=== PATIENT | male | born 1985 ===

== ENCOUNTER 2017-05-15 16:02 | Emergency (ER) | payer OTHER ==
[~2017-05-15] VITALS: Ht 177.8 cm; Wt 77.6 kg
[2017-05-15 16:06] VITALS: TEMP 36.7; Ht 177.8 cm; Wt 77.6 kg
[2017-05-15] MEDS ORDERED: ALUMINUM/MAGNESIUM SUSP 30 ML UDC PO STA (16:21)
[2017-05-15] MEDS ORDERED: SODIUM CHLORIDE 0.9% 1000ML 1,000 ML IV STA (16:21)
[2017-05-15] MEDS ORDERED: LIDOCAINE HCL 2% VISC SOLN 20 ML UDC PO STA (16:21)
[2017-05-15 16:43] LABS: BASO % 0.2 %; BASO ABS # 0.01 K/uL (0-0.2); COMPLETE YES; EOS % 5.3 %; HEMATOCRIT 44.7 % (42-52); IG% 0.2 %; LYMPH % 32.8 %; LYMPH ABS # 1.97 K/uL (1.2-3.4); MEAN CELL VOLUME 88.3 fL (80-100); MEAN CORPUSCULAR HGB CONC 35.1 g/dl (32-36); MEAN PLATELET VOLUME 9.9 fL (7.4-10.4); MONO % 9.3 %; NEUT % 52.2 %; PLATELET COUNT 180 K/uL (130-400); RED BLOOD COUNT 5.06 M/uL (4.7-6.1); WHITE BLOOD COUNT 6.01 K/uL (4.8-10.8)
[2017-05-15 16:50] LABS: URINE APPEARANCE CLEAR (CLEAR); URINE BILIRUBIN NEG (NEG); URINE COLOR YELLOW; URINE NITRITE NEG (NEG); UROBILINOGEN NEG (NEG)
[2017-05-15 16:52] LABS: MANUAL MICROSCOPIC REQUIRED? NO; REVIEW REQ? NO
[2017-05-15 16:58] LABS: BUN/CREATININE RATIO 20.2 (10-20); CALCIUM 8.5 mg/dl (8.5-10.1); CREATININE 1.1 mg/dl (0.60-1.40); POTASSIUM 4.1 mmol/L (3.5-5.1)
--- NOTE | 2017-05-15 17:48 | DIAGNOSTIC IMAGING REPORT ---
ABDOMINAL ULTRASOUND, RIGHT UPPER QUADRANT HISTORY: UPPER ABDOMINAL PAIN/GI. COMPARISON: None. FINDINGS: Pancreas: The pancreas demonstrates a normal echotexture. Liver: Unremarkable. Gallbladder: No gallbladder wall thickening. No gallstones. CBD: 4 mm. Right kidney: No hydronephrosis. IMPRESSION: No significant abnormality identified within the right upper quadrant. Electronically signed by: Oswald Patton M.D. 05/15/2017 5:46 PM Dictated Date/Time: 05/15/2017 5:46 PM
--- NOTE | 2017-05-15 18:11 | EMERGENCY ROOM VISIT NOTE ---
History First contact with patient: 16:07 Chief Complaint: ABDOMINAL PAIN Stated Complaint: ABD PAIN Nursing Triage Summary: TRIAGE NOTE: PT REPORTS MID ABD PAIN X 2 WEEKS. History of Present Illness The patient is a 31 year old male who presents to the Emergency Room with complaints of intermittent epigastric pain for the past 2 weeks. The patient reports that when he does get the pain, it will last approximately an hour before it resolves. 5 days ago, however, the pain lasted for approximately 4-5 hours and completely resolved. He has not noticed any pain with different types of foods or drinks. The patient does not eat spicy foods. He does drink 2-3 cups of coffee daily. He reports moderate amounts of alcohol consumption. He denies NSAIDs use. The patient reports that the pain does not radiate into the back, chest or lower abdomen. This morning he reports that the pain felt better laying on his back, and worse sitting up. The patient did have soft stool 2 days ago, but it was not watery. He also had a mild nonproductive cough at that time that resolved overnight. The patient denies any prior history of abdominal surgeries. He denies any strong family history of gallbladder disease. He denies any urinary symptoms or dark urine. He currently rates his discomfort a 2 out of 10. Review of Systems HEENT: Denies dizziness, visual problems, hearing loss, tinnitus. Denies difficulty swallowing or oral lesions. PULMONARY: Denies cough, shortness of breath, sputum production or hemoptysis. CARDIOVASCULAR: Denies chest pain, palpitations, dyspnea on exertion, orthopnea or peripheral edema. GASTROINTESTINAL: Denies diarrhea, constipation, nausea or vomiting. Otherwise see history of present illness. GENITOURINARY: Denies dysuria, frequency, urgency or nocturia. NEUROLOGIC: Denies history of epilepsy, CVA, TIA or chronic headaches. MUSCULOSKELETAL: Denies history of joint tenderness/swelling. SKIN: Denies rashes or lesions. PSYCHIATRIC: Denies history of depression or mental illness. ENDOCRINE: Denies history of diabetes or thyroid disorders. Past Medical/Surgical History Medical Problems: (1) No significant past medical history Surgical Problems: (1) No history of previous surgery Family History No significant family history Social History Smoking Status: Current Every Day Smoker Alcohol Use: occasionally Marital Status: single Occupation Status: [employer] student Current/Historical Medications No Active Prescriptions or Reported Meds Allergies Coded Allergies: No Known Allergies (Unverified , 05/15/17) Physical Exam Vital Signs Date Time Temp Pulse Resp B/P (MAP) Pulse Ox O2 Delivery O2 Flow Rate FiO2 05/15/17 17:12 76 18 126/74 100 Room Air 05/15/17 16:06 36.7 82 18 138/86 95 Room Air Physical Exam CONSTITUTIONAL: Healthy and well nourished. Alert and oriented X 3 with positive affect. The patient does not appear in any acute distress. HEENT: Normocephalic, atraumatic. Pupils equal, round and reactive. Ears and nares are clear. No scleral icterus or conjunctival injection/pallor. NECK: Full active range of motion without discomfort. No JVD or carotid bruits. RESPIRATORY: Clear to auscultation bilaterally with no wheezing, crackles, rhonchi or stridor. CARDIOVASCULAR: Regular rate and rhythm with no murmurs, rubs or gallops. GASTROINTESTINAL: Bowel sounds present in all quadrants. Should has tenderness to palpation of the epigastrium and right upper quadrant. Negative Edelmira's point tenderness. Negative CVA tenderness. No abdominal rigidity, guarding or rebound. MUSCULOSKELETAL: Full range of motion of all joints without discomfort. INTEGUMENTARY: No rash or other significant dermatologic conditions noted. HEMATOLOGIC: No ecchymosis or petechiae. NEUROLOGIC: No focal neurologic deficits noted. Medical Decision & Procedures ER Provider Diagnostic Interpretation: Abdominal ultrasound does not show any acute findings. Radiologist report is as follows: ABDOMINAL ULTRASOUND, RIGHT UPPER QUADRANT HISTORY: UPPER ABDOMINAL PAIN/GI. COMPARISON: None. FINDINGS: Pancreas: The pancreas demonstrates a normal echotexture. Liver: Unremarkable. Gallbladder: No gallbladder wall thickening. No gallstones. CBD: 4 mm. Right kidney: No hydronephrosis. IMPRESSION: No significant abnormality identified within the right upper quadrant. Laboratory Results 05/15/17 16:30 Red Blood Count 5.06, Mean Corpuscular Volume 88.3, Mean Corpuscular Hemoglobin 31.0, Mean Corpuscular Hemoglobin Concent 35.1, Mean Platelet Volume 9.9, Neutrophils (%) (Auto) 52.2, Lymphocytes (%) (Auto) 32.8, Monocytes (%) (Auto) 9.3, Eosinophils (%) (Auto) 5.3, Basophils (%) (Auto) 0.2, Neutrophils # (Auto) 3.14, Lymphocytes # (Auto) 1.97, Monocytes # (Auto) 0.56, Eosinophils # (Auto) 0.32, Basophils # (Auto) 0.01 05/15/17 16:30 Test 05/15/17 16:30 White Blood Count 6.01 K/uL (4.8-10.8) Red Blood Count 5.06 M/uL (4.7-6.1) Hemoglobin 15.7 g/dL (14.0-18.0) Hematocrit 44.7 % (42-52) Mean Corpuscular Volume 88.3 fL (80-100) Mean Corpuscular Hemoglobin 31.0 pg (25-34) Mean Corpuscular Hemoglobin Concent 35.1 g/dl (32-36) Platelet Count 180 K/uL (130-400) Mean Platelet Volume 9.9 fL (7.4-10.4) Neutrophils (%) (Auto) 52.2 % Lymphocytes (%) (Auto) 32.8 % Monocytes (%) (Auto) 9.3 % Eosinophils (%) (Auto) 5.3 % Basophils (%) (Auto) 0.2 % Neutrophils # (Auto) 3.14 K/uL (1.4-6.5) Lymphocytes # (Auto) 1.97 K/uL (1.2-3.4) Monocytes # (Auto) 0.56 K/uL (0.11-0.59) Eosinophils # (Auto) 0.32 K/uL (0-0.5) Basophils # (Auto) 0.01 K/uL (0-0.2) RDW Standard Deviation 41.2 fL (36.4-46.3) RDW Coefficient of Variation 12.8 % (11.5-14.5) Immature Granulocyte % (Auto) 0.2 % Immature Granulocyte # (Auto) 0.01 K/uL (0.00-0.02) Urine Color YELLOW Urine Appearance CLEAR (CLEAR) Urine pH 6.0 (4.5-7.5) Urine Specific [place] 1.020 (1.000-1.030) Urine Protein NEG (NEG) Urine Glucose (UA) NEG (NEG) Urine Ketones NEG (NEG) Urine Occult Blood NEG (NEG) Urine Nitrite NEG (NEG) Urine Bilirubin NEG (NEG) Urine Urobilinogen NEG (NEG) Urine Leukocyte Esterase NEG (NEG) Anion Gap 6.0 mmol/L (3-11) Est Creatinine Clear Calc Drug Dose 102.3 ml/min Estimated GFR () 104.6 Estimated GFR (Non- 90.2 BUN/Creatinine Ratio 20.2 (10-20) Calcium Level 8.5 mg/dl (8.5-10.1) Total Bilirubin 0.4 mg/dl (0.2-1) Direct Bilirubin 0.1 mg/dl (0-0.2) Aspartate Amino Transf (AST/SGOT) 32 U/L (15-37) Alanine Aminotransferase (ALT/SGPT) 34 U/L (12-78) Alkaline Phosphatase 81 U/L (45-117) Total Protein 7.4 gm/dl (6.4-8.2) Albumin 3.8 gm/dl (3.4-5.0) Lipase 128 U/L (73-393) The above labs were reviewed and were normal. Medications Administered Medications (Trade) Dose Ordered Sig/Sara Route Start Time Stop Time Status Last Admin Dose Admin Sodium Chloride 1,000 ml @ 999 mls/hr Q1H1M STAT IV 05/15/17 16:21 05/15/17 17:21 DC 05/15/17 16:49 999 MLS/HR Lidocaine HCl (Viscous Lidocaine 2% Soln) 10 ml NOW STAT PO 05/15/17 16:21 18 16:24 DC 18 16:48 10 ML Al Hydroxide/Mg Hydroxide (Maalox Susp) 30 ml NOW STAT PO 05/15/17 16:21 05/15/17 16:24 DC 05/15/17 16:48 30 ML ED Course Patient history and physical exam were performed. Nurse's notes were reviewed. Vital signs were reviewed and normal. IV access was established, and labs were drawn. The patient refused any analgesics or antiemetics. He was hydrated with a liter normal saline. Review of labs shows no abnormalities. Abdominal ultrasound was also normal. The patient reports that the GI cocktail totally resolved his symptoms. The patient was advised of his normal ultrasound and laboratory studies. I did explain that he certainly could still have a dysfunctional gallbladder/biliary colic that would still have normal laboratory and imaging studies. However, I feel that his symptoms are likely gastric etiology. The patient was encouraged to avoid GI irritants such as NSAIDs, alcohol and caffeine. It was suggested that he take Zantac and Maalox as needed for discomfort. Follow-up with family doctor if symptoms are not improving within the next week, and return to the emergency department for any progressively worsening pain, vomiting or developing fever. The patient was happy with plan of care, and voiced understanding of all discharge instructions. Medical Decision As indicated in the previous section, I suspect that the patient's symptoms are gastric related. Laboratory and imaging studies are not suggestive of pancreatitis, cholecystitis, hepatitis or overwhelming infection. His electrolytes are normal. I do not suspect bowel obstruction, appendicitis, diverticulitis, ischemic colitis or mesenteric adenitis. I also do not suspect cardiopulmonary etiology. Impression Primary Impression: Epigastric pain Departure Information Prescriptions No Active Prescriptions or Reported Meds Referrals Vernon Kerr, D.O. (PCP) Patient Instructions [facility]
[2017-05-15 18:16] VITALS: BP 121/60; PULSE 65; O2SAT 99
== END 2017-05-15 18:18 | disposition home or self-care (01) ==
LOC: C.EDB 16:06
DX: R10.13 Epigastric pain (principal); F17.200 Nicotine dependence, unspecified, uncomplicated